=== PATIENT | male | born 2000 | race Hispanic/Latino ===

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

== ENCOUNTER 2021-11-06 22:17 | Emergency (ER) | payer OTHER ==
[~2021-11-06] VITALS: Ht 162.6 cm; Wt 71.4 kg
[~2021-11-06 22:17] MED LIST: IBUP80TA PO
[2021-11-06 22:18] VITALS: BP 125/57
[2021-11-06] MEDS ORDERED: ACET-683 PO (22:24)
== END 2021-11-07 04:04 | disposition left against medical advice (07) ==
LOC: M ED 22:17
DX: Z53.21 Procedure and treatment not carried out due to patient leaving prior to being seen by health care provider (principal)

== ENCOUNTER 2023-03-19 15:18 | Inpatient (IN) | payer OTHER ==
[~2023-03-19] VITALS: Ht 162.6 cm; Wt 73.0 kg
[~2023-03-19 15:18] MED LIST changes: +ACET-683 PO
[2023-03-19 16:07] LABS: HEMATOCRIT 47.8 % (42.0-52.0); HEMOGLOBIN 16.3 g/dl (13.5-17.5); MEAN CORPUSCULAR HEMOGLOBIN 29.4 pg (27.0-33.0); MEAN CORPUSCULAR HGB CONC 34.1 g/dl (32.0-36.5); MEAN CORPUSCULAR VOLUME 86.3 fl (80.0-96.0); PLATELET COUNT, AUTOMATED 220 10^3/uL (150-450); RED BLOOD COUNT 5.54 10^6/uL (4.30-6.10); WHITE BLOOD COUNT 6.8 10^3/uL (4.0-10.0)
[2023-03-19 16:37] LABS: ETHYL ALCOHOL (ETHANOL) < 0.003 % (0.000-0.010)
[2023-03-19 16:38] LABS: ACETAMINOPHEN LEVEL < 2.0 UG/ML (10.0-20.0); ALBUMIN 4.4 G/DL (3.2-5.2); ALKALINE PHOSPHATASE 85 U/L (46-116); ALT/SGPT 20 U/L (7.0-40); AST/SGOT 12 U/L (<34); BILIRUBIN,DIRECT < 0.1 MG/DL (<0.4); BILIRUBIN,TOTAL 0.2 MG/DL (0.3-1.2); BLOOD UREA NITROGEN 21 MG/DL (9-23); CALCIUM LEVEL 9.1 MG/DL (8.5-10.1); CARBON DIOXIDE LEVEL 29 MMOL/L (20-31); CHLORIDE LEVEL 104 MMOL/L (98-107); CREATININE FOR GFR 0.86 MG/DL (0.70-1.30); GLOMERULAR FILTRATION RATE > 60.0 (>60); GLUCOSE, FASTING 96 MG/DL (60-100); POTASSIUM SERUM 4.3 MMOL/L (3.5-5.1); SALICYLATE LEVEL < 3.0 MG/DL (<30); SODIUM LEVEL 139 MMOL/L (136-145); TOTAL PROTEIN 7.7 G/DL (5.7-8.2)
[2023-03-19 16:41] LABS: THYROID STIMULATING HORMONE 0.726 uIU/ML (0.55-4.78)
[2023-03-19 17:04] LABS: AMPHETAMINES LEVEL URINE NEGATIVE (NEGATIVE); BARBITURATES URINE NEGATIVE (NEGATIVE); BENZODIAZEPINES URINE NEGATIVE (NEGATIVE); CANNABINOIDS URINE NEGATIVE (NEGATIVE); COCAINE METABOLITE URINE NEGATIVE (NEGATIVE); METHADONE URINE NEGATIVE (NEGATIVE); OPIATES URINE NEGATIVE (NEGATIVE); PHENCYCLIDINE URINE NEGATIVE (NEGATIVE)
[2023-03-19] MEDS ORDERED: HOME MED LIST COMPLETE! XX SCH (18:30)
[2023-03-19] MEDS ORDERED: ACETAMINOPHEN TAB 650MG DOSE (2X325MG) PO PRN (22:10)
[2023-03-19] MEDS ORDERED: IBUPROFEN 400MG TAB PO PRN (22:10)
[2023-03-19] MEDS ORDERED: MAALOX 30 ML SUSP *UDC PO PRN (22:10)
[2023-03-19] MEDS ORDERED: MOM 30ML SUSPENSION UDC PO PRN (22:10)
[2023-03-19] MEDS ORDERED: OLANZapine ORAL DISINTEGRATING TAB 5MG PO PRN (22:10)
[2023-03-19] MEDS ORDERED: NICOTINE 21MG/24HR 1 EA TRANSDERMAL TD PRN (22:10)
[2023-03-19 23:39] VITALS: BP 135/78; TEMP 98.5; O2SAT 100
[2023-03-20 06:00] VITALS: BP 128/67; TEMP 98.2; O2SAT 100
[2023-03-20 16:54] VITALS: BP 131/72; TEMP 98.8; O2SAT 99
[2023-03-20] MEDS ORDERED: SERTRALINE HCL 25 MG TABLET PO ONE (21:00)
[2023-03-20] MEDS: diphenhydrAMINE 25MG CAP PO PRN (21:49)
[2023-03-21 06:33] VITALS: BP 135/77; TEMP 97.7; O2SAT 100
[2023-03-21 16:13] VITALS: BP 119/55; TEMP 98.8; O2SAT 100
[2023-03-21] MEDS: SERTRALINE HCL 50 MG TAB PO SCH (21:28)
[2023-03-21] MEDS: diphenhydrAMINE 25MG CAP PO PRN (21:28)
[2023-03-22 06:43] VITALS: BP 138/80; TEMP 97.8; O2SAT 99
[2023-03-22 16:11] VITALS: BP 122/64; TEMP 98.4; O2SAT 99
[2023-03-22] MEDS: diphenhydrAMINE 25MG CAP PO PRN (21:16)
[2023-03-22] MEDS: traZODone 50 MG TAB PO PRN (21:16)
[2023-03-22] MEDS: SERTRALINE HCL 50 MG TAB PO SCH (21:16)
[2023-03-23 06:31] VITALS: BP 133/60; TEMP 98.1; O2SAT 100
[2023-03-23 18:00] VITALS: BP 144/65; TEMP 96.5; O2SAT 99
[2023-03-23] MEDS: diphenhydrAMINE 25MG CAP PO PRN (20:37)
[2023-03-23] MEDS: SERTRALINE HCL 50 MG TAB PO SCH (20:38)
[2023-03-23] MEDS: traZODone 50 MG TAB PO PRN (20:38)
[2023-03-24 05:54] VITALS: BP 131/72; TEMP 98.2; O2SAT 100
[2023-03-24] MEDS ORDERED: SERT50TA29 PO (08:42)
== END 2023-03-24 11:10 | disposition home or self-care (01) | DRG 882 ==
LOC: M ED 15:18 → M ED INP 22:09 → M PSY 23:36
PROVIDERS: ADMIT Psychiatry & Neurology Psychiatry; ATTEND Student in an Organized Health Care Education/Training Program
DX: F43.23 Adjustment disorder with mixed anxiety and depressed mood (principal); R45.851 Suicidal ideations; Z63.5 Disruption of family by separation and divorce

== ENCOUNTER 2023-08-12 13:09 | Emergency (ER) | payer OTHER ==
[~2023-08-12] VITALS: Ht 162.6 cm; Wt 79.5 kg
[~2023-08-12 13:09] MED LIST changes: +SERT50TA29 PO
[2023-08-12 16:43] VITALS: BP 129/75; TEMP 98.1; O2SAT 99
== END 2023-08-12 16:44 | disposition home or self-care (01) ==
LOC: M ED 13:09
DX: R21 Rash and other nonspecific skin eruption (principal)